=== PATIENT | female | born 1955 | race African-American/Black ===

== ENCOUNTER → 2017-04-28 | Outpatient (CLI) | payer BC ==
[~2017-04-28] MED LIST: ASPIRIN81 M2 PO; AVAPRO300 M1 PO; HCTZ PO; KCL PO; NORVASC PO; PRAVASTATIN SOD80 MG PO; VITAMIN D50000 UNIT PO
--- NOTE | ~2017-04-28 | TH ---
Unit #: [id number] #: [id number] Patient: EDEL PETERSEN [id number] [facility]. [address] [address] [id number] O MR#: [id number] NAME: EDEL PETERSEN. : 1955 SEX: F STUDY DATE/TIME: 04/28/2017 UNIT: LOCATED WITHIN [facility] ROOM: STUDY DESCRIPTION: Attending Physician: Catrachito Covington M.D. Referring Physician: Catrachito Covington M.D. Primary Care Physician: Catrachito Covington M.D. CARDIOLOGY REPORT EXAM Lexiscan Cardiolite stress test, nuclear portion. PROCEDURE Using technetium 99m labeled Cardiolite, rest and stress SPECT images were obtained. Multiple SPECT images were obtained in various views including horizontal and vertical long axis and short axis views of the left ventricle. Images were obtained by gated SPECT method. The patient was administered 11.06 mCi of Cardiolite at rest. The patient was administered 33 mCi of Cardiolite after Lexiscan infusion was completed. On the stress images, there is normal perfusion noted. The rest images show normal perfusion. Comparing rest and stress images, there is no stress-induced ischemia noted. The left ventricular ejection fraction is calculated to be 77%. There is no focal wall motion abnormality seen. CONCLUSION 1. No stress-induced ischemia noted. 2. The left ventricular ejection fraction is calculated to be 77%. 3. There is no focal wall motion abnormality seen. 4. Normal Lexiscan Cardiolite stress test. Dictated by..Joseph Evans TD: 04/28/2017 12:01 JOB #: [id number] CC: Catrachito Covington M.D. CARDIOLOGY REPORT Page 1 of 1 X Danica Hassan MD <ELECTRONICALLY SIGNED> 06/04/17 1429 CARDIOLOGY REPORT
--- NOTE | ~2017-04-28 | ST ---
Unit #: [id number] #: [id number] Patient: EDEL PETERSEN [id number] [facility]. [address] [address] [id number] O MR#: [id number] NAME: EDEL PETERSEN. : 1955 SEX: F STUDY DATE/TIME: UNIT: [facility] ROOM: STUDY DESCRIPTION: Stress Test Attending Physician: Catrachito Covington M.D. Referring Physician: Catrachito Covington M.D. Primary Care Physician: Catrachito Covington M.D. CARDIOLOGY REPORT EXAM Lexiscan Cardiolite Stress Test DESCRIPTION Baseline EKG - normal sinus rhythm with ventricular rate 65 beats/minute. Lexiscan is a four minute test with Lexiscan being injected within the first minute followed by Cardiolite. EKG during the test was equivocal to baseline. No acute ischemic changes. Noted a rare premature atrial contraction. The patient had no complaints of chest pain, palpitations or dizziness. Had increased shortness of breath and fatigueness which resolved in recovery phase. Maximum heart rate response was 96 beats/minute with a maximum blood pressure response of 153/80 mmHg. Cardiolite was injected after Lexiscan within the first minute of the test. Radionuclide test pending. Please correlate with nuclear images. Dictated by... Indigo Mclean A.P.R.N. for Joseph Ross/ronal TD: 04/28/2017 09:13 JOB #: [id number] CARDIOLOGY REPORT Page 1 of 1 X Indigo Mclean APRN CARDIOLOGY REPORT
== END | disposition home or self-care (01) ==
LOC: CNUC 06:03
DX: R07.9 Chest pain, unspecified (principal); E78.5 Hyperlipidemia, unspecified; I10 Essential (primary) hypertension; E66.01 Morbid (severe) obesity due to excess calories; E11.9 Type 2 diabetes mellitus without complications
CPT/HCPCS: 78452; 93017; A9500; J2785